=== PATIENT | male | born 1955 | race Caucasian/White ===

== ENCOUNTER → 2023-11-23 06:15 | Day surgery (SDC) | payer OTHER, SELFPAY | LOC: GI 06:15 | PROVIDERS: ATTENDING PHYSICIAN Internal Medicine Gastroenterology | DX: Z12.11 Encounter for screening for malignant neoplasm of colon (principal); K57.30 Diverticulosis of large intestine without perforation or abscess without bleeding; K64.8 Other hemorrhoids | CPT/HCPCS: G0121 ==

== ENCOUNTER → 2024-01-15 06:23 | Day surgery (SDC) | payer OTHER, SELFPAY | LOC: GI 06:23 | PROVIDERS: ATTENDING PHYSICIAN Internal Medicine Gastroenterology | DX: K21.00 Gastro-esophageal reflux disease with esophagitis, without bleeding (principal); K22.2 Esophageal obstruction; K44.9 Diaphragmatic hernia without obstruction or gangrene; R13.10 Dysphagia, unspecified | CPT/HCPCS: 43249 ==

== ENCOUNTER 2024-11-03 06:20 | Day surgery (SDC) | payer OTHER, SELFPAY ==
[2024-11-03] VITALS (8 sets, daily range): BP systolic 125–143; BP diastolic 63–94; BMI 24.6
[2024-11-03] MEDS: NORMOSOL-R/PLASMALYTE-A 1000 IV (08:33)
[2024-11-03] MEDS: TYLENOL 1000 MG PO (08:33)
--- NOTE | 2024-11-03 12:08 | W.IMMPOSTOP ---
Surgical Immed Post Op Note
-
Primary Surgeon: Magda
Assisting: Ruben TUBBS
Pre-op Diagnosis: Bilateral inguinal and incarcerated umbilical hernia
Post-op Diagnosis: Same
Procedure Performed: Robot assisted laparoscopic repair bilateral inguinal and incarcerated umbilical hernias (rTAPP)
Anesthesia Type: GETA + TAP block
Specimen / Cultures: None
Estimated Blood Loss: 5cc
Complications: None immediate
Operative Findings: Bilateral indirect defects, bilateral cord lipomas, fatty cord on the left; D/L XL MID 3D max; 1.5x1cm umbilical defect, 8cm bard round soft mesh preperitoneal
--- NOTE | 2024-11-03 12:10 | OR.RPT ---
Operative Report
Operative Report
Primary Surgeon: Magda
Assisting: Ruben TUBBS
Pre-op Diagnosis: Bilateral inguinal and incarcerated umbilical hernia
Post-op Diagnosis: Same
Procedure Performed: Robot assisted laparoscopic repair bilateral inguinal and incarcerated umbilical hernias (rTAPP)
Anesthesia Type: GETA + TAP block
Specimen / Cultures: None
Estimated Blood Loss: 5cc
Complications: None immediate
Operative Findings: Bilateral indirect defects, bilateral cord lipomas, fatty cord on the left; D/L XL MID 3D max; 1.5x1cm umbilical defect, 8cm bard round soft mesh preperitoneal
Date of Surgery: 11/03/24
Indications: This 68M developed symptomatic right inguinal hernia. Exam revealed an umbilical and left inguinal defect. He asked that we repair all three hernias today. Robot assisted laparoscopic repair was elected
Description of procedure:� The patient was taken to the operating room and positioned into supine position. The patient�s abdomen was prepped and draped in standard sterile fashion. A time-out was completed verifying correct patient, procedure,
site, positioning, and implants and special equipment prior to beginning this procedure. The groin hernias and incarcerated umbilical hernia were manually reduced.
A stab incision was made in the left upper quadrant, a Veress needle was inserted and proper position was confirmed by aspiration and saline drop test. Following this, pneumoperitoneum was created with insufflation of carbon dioxide to 12 mmHg. Then
a 8mm robotic trocar was inserted above and to the left of the umbilicus. A laparoscope was inserted and the area of initial trocar entry and Veress needle placement were both inspected and no injuries were found. Two 8mm trocars were then placed
lateral to the rectus sheath under direct visualization.
Both inguinal regions were inspected and the median umbilical ligament, medial umbilical ligament, and lateral umbilical fold were identified. Attention was turned to the right groin. The peritoneum was incised transversely above the defect and a
flap was developed in the caudad direction. Patrick�s ligament was identified ultimately dissected to its junction with the iliac vein and the space of Retzius was developed bluntly. The dissection was continued inferiorly to the iliopubic tract,
with care taken to avoid injury to the femoral branch of the genitofemoral nerve and the lateral femoral cutaneous nerve. The cord structures were parietalized.
The direct space was inspected and a hernia defect was not identified. The femoral space was inspected and no defect was identified. The indirect space was inspected and a defect was identified and reduced by gentle traction. The canal was
inspected and a large sized cord lipoma was identified and reduced.
Attention was turned to the left groin and the above process was repeated. An indirect hernia was reduced along with a large sized cord lipoma. The cord was fatty on this side.
Extra large left and right MID 3D max mesh was passed through a trocar. The mesh was placed into the preperitoneal space and moved into position to lay flat and completely cover the direct, indirect, and femoral spaces with overlap at the midline.
The mesh was secured into place using 2-0 vicryl suture to Patrick�s ligament medially and laterally. Care was taken to avoid the inferolateral triangles containing the iliac vessels and genital nerves. The peritoneal flap was closed over the mesh
and secured with 2-0 monocryl stratafix suture in similar positions of safety. A flap rent on either side was closed with 2-0 vicryl suture. A 14g angiocath was used to decompress the preperitoneal space revealing good seal and all mesh in good
position without folding or curling.
Attention was turned to the umbilical defect. An incision was made in the peritoneum several cm superior to the defect and a flap was developed in caudad direction. The defect was identified and measured as above. The incarcerated fat was reduced
and the defect was closed with 0 PDS stratafix suture. A 8cm x 8cm bard soft mesh was passed into the abdomen and placed into the preperitoneal space, flush against the abdominal wall and centered on the defect. The mesh was secured in place with
3-0 vicryl suture under the defect and at all four corners. The peritoneal flap was then closed over the mesh and secured to the abdominal wall with 2-0 monocryl suture. A 14g angiocath was used to decompress the preperitoneal space revealing good
seal and all mesh in good position without folding or curling.
After ensuring adequate hemostasis, the trocars were removed and the pneumoperitoneum allowed to escape. The trocar incisions were closed at the skin level using 4-0 monocryl and topical skin adhesive. All counts were correct and the patient
tolerated the procedure well and was taken to the postanesthesia care unit in stable condition.
The assistance of Ruben TUBBS was required due to the complexity of the procedure. During the procedure she assisted with retraction, resection, and closure of the wound.
[2024-11-03] MEDS: DILAUDID 0.5 MG IV (12:48)
== END 2024-11-03 14:08 | disposition home or self-care (01) ==
LOC: SDS 06:20
PROVIDERS: ATTENDING PHYSICIAN Surgery; FAMILY PHYSICIAN Internal Medicine
DX: K40.20 Bilateral inguinal hernia, without obstruction or gangrene, not specified as recurrent (principal); K42.0 Umbilical hernia with obstruction, without gangrene
CPT/HCPCS: 49650; 49592; 93005; C1781

== ENCOUNTER → 2024-12-12 09:58 | Outpatient (REF) | payer OTHER, SELFPAY | LOC: RCS 09:58 | PROVIDERS: ATTENDING PHYSICIAN Internal Medicine; FAMILY PHYSICIAN Internal Medicine | DX: I25.10 Atherosclerotic heart disease of native coronary artery without angina pectoris (principal); I10 Essential (primary) hypertension; I45.10 Unspecified right bundle-branch block; R06.09 Other forms of dyspnea | CPT/HCPCS: 93306 ==

== ENCOUNTER → 2024-12-19 09:57 | Outpatient (REF) | payer OTHER, SELFPAY | LOC: RCS 09:57 | PROVIDERS: ATTENDING PHYSICIAN Internal Medicine; FAMILY PHYSICIAN Internal Medicine | DX: I25.10 Atherosclerotic heart disease of native coronary artery without angina pectoris (principal); I10 Essential (primary) hypertension; I45.10 Unspecified right bundle-branch block; R06.09 Other forms of dyspnea | CPT/HCPCS: 93017; 93350 ==

== ENCOUNTER 2025-03-07 14:16 | Emergency (ER) | payer OTHER, SELFPAY ==
[2025-03-07 14:18] VITALS: BP 154/109
[2025-03-07 14:50] VITALS: BMI 25.1
[2025-03-07] MEDS: ADACEL 0.5 ML IM (14:54)
--- NOTE | 2025-03-07 15:09 | ED.GENMED ---
History of Present Illness
General
Chief Complaint: Fall
Source: patient
Exam Limitations: none
Time Seen by Provider: 03/07/25 14:38
History of Present Illness
History of Present Illness:
69yoM with a history of hypertension and hyperlipidemia presenting for evaluation after a fall about 1 hour ago. Patient was cleaning windows and was standing on a carport when he lost his balance and fell 6 feet to the ground. He sustained
multiple lacerations to his scalp during the incident. He denies any loss of consciousness. Patient was able to get up immediately after the fall. He went to urgent care and was sent to the ED for evaluation. His only current complaint is a
headache. He denies any dizziness, visual changes, vomiting, neck pain, pleuritic pain, abdominal pain, back pain. His only blood thinner is a baby aspirin.
Past History
Past History
ED Past Medical History: Hypercholesterolemia
ED Past Surgical History: Orthopedic (Patient has a history of an elbow reduction, as well as has a left heel subtalar fusion.)
Social History
Tobacco: Non-smoker
Personal:
Living: with family
Employment: Employed
Family History
Family History: Cancer (breast)
Phy Exam
General Physical Exam
General Presentation: well appearing and no apparent distress
General age: appears stated age
General Skin: warm and dry
General Habitus: normal
General Mental: alert
ENT Exam
ENT Exam: normocephalic and other (Two scalp gaping lacerations noted with mild amount of active bleeding. 6cm laceration noted to middle of scalp and 5cm laceration noted to right lateral scalp.)
Additional ENT: No cervical spine tenderness
Eye Exam
Eye Exam: PERRL and conjunctiva normal
Pulmonary Exam
Pulmonary Exam: lungs clear, no respiratory distress, no rales, chest non tender, no crackles and no rhonchi
Gastrointestinal Exam
Gastrointestinal Exam: non tender, soft and non distended
Neurological Exam
Neurological Exam: alert
[place] Coma Scale
Eye Opening: Spontaneous
Verbal Response: Oriented
Motor Response: Obeys Commands
GCS Total Score: 15
Musculoskeletal Exam
Musculoskeletal Exam: other (No C/T/L spine tenderness)
Skin Exam
Skin Exam: normal color and warm/dry
Psychiatric Exam
Psychiatric Exam: normal mood/affect
Course
Orders/Labs/Results
Orders:
Orders
03/07/25 14:51
CT Cervical Spine W/o Iv Contr Urgent
Comment:
Reason For Exam: head injury
CT Head W/o Iv Contrast Urgent
Comment:
Reason For Exam: head injury
Tetanus/Diphth/Acelpertussis [Adacel] 0.5 ml IM .ONCE ONE
Vital Signs
Initial and Last Documented VS:
Initial Vital Signs
Temp Pulse Resp BP Pulse Ox
97.8 F 86 16 154/109 97
03/07/25 14:18 03/07/25 14:18 03/07/25 14:18 03/07/25 14:18 03/07/25 14:18
Last Documented Vital Signs
Temp Pulse Resp BP Pulse Ox
97.8 F 68 16 151/84 97
03/07/25 14:18 03/07/25 17:46 03/07/25 17:46 03/07/25 17:46 03/07/25 17:46
Procedures
Laceration Closure
Medial Scalp:
Status of Wound: clean
Size of Wound in cm: 6
Description of Wound Edges: ragged
Preparation: cleaned with saline
Anesthesia: 1% Lidocaine with epi
Wound exploration: explored to base- no FB
Type of Closure: single layer closure
Skin Closure Material: skin saturnino
Number of sutures: 5
Right Lateral Scalp:
Status of Wound: clean
Size of Wound in cm: 5
Description of Wound Edges: ragged
Preparation: cleaned with saline
Anesthesia: 1% Lidocaine with epi
Wound exploration: explored to base- no FB
Skin Closure Material: skin saturnino
Number of sutures: 6
MDM/Problems Addressed
Differential Diagnosis Includes:
69yoM here after he fell 6 feet off of a carport and struck his head. No LOC. C/o headache. Arrives with 2 scalp lacerations. No other injuries seen on exam. He is awake, alert, with a GCS of 15. Differential diagnosis includes but is not limited
to: Laceration, closed head injury, concussion, intracranial hemorrhage, fracture
Lacerations repaired with saturnino as above. Tdap updated. CT head and cervical spine obtained which are negative for bleeding or fractures. Patient stable for discharge. Home wound care discussed. He was advised to have saturnino removed in 1
week and return to the ER with any signs of infection.
*Pulse Oximetry
SaO2: 97
Oxygen Mode of Delivery: Room air
Patient hypoxic: no
*Critical Care Note
Total Time (30-74mins, 75-104mins- exclusive of procedures): Not Applicable
ED Attending Note
-
Portions of this chart may have been created with voice recognition software.� Occasional wrong word or��sound alike� substitutions may have occurred due to the inherent limitations of voice recognition software.
Discharge Plan
Departure
Patient Disposition: Home (Routine Discharge)
Date of Disposition: 03/07/25
Time of Disposition: 17:44
Patient with high blood pressure during this ER visit?: Yes
Discharge Problem:
Laceration of scalp, Head injury
Instructions: Head Injury in Adults (DC), Laceration Repair With [place] (DC)
Prescriptions:
No Action
amlodipine 5 mg Tablet
5 mg PO HS
aspirin 81 mg Tablet,Delayed Release (Dr/Ec)
81 mg PO HS
losartan-hydrochlorothiazide 100-25 mg Tablet
1 tab PO DAILY
omeprazole 20 mg Capsule,Delayed Release(Dr/Ec)
20 mg PO Q48H
rosuvastatin 10 mg Tablet
10 mg PO HS
saw palmetto 450 mg Capsule
900 mg PO BID
tavaborole 5 % Solution With Applicator
1 applic TOPICAL HS
magnesium glycinate
1 cap PO HS
tramadol 50 mg tablet
50 mg PO Q6H PRN (Reason: Pain) Qty: 40 0RF
Referrals:
Jackie Tinajero MD [Family Provider, Internal Medicine]
Activity Restrictions/Additional Instructions:
Apply ice to affected area. Take Tylenol and Aleve as needed for pain. Keep wound clean and dry.
Saturnino will need to be removed in 1 week. Return to the ER with any worsening symptoms including signs of infection.
Interventions
Interventions:
*Risk Screen - Suicide Last Done: 03/07/25 14:18
*General Assessment Last Done: 03/07/25 14:18
*Neglect/Abuse Screening Last Done: 03/07/25 14:18
*ED- Fall Risk Assessment Last Done: 03/07/25 14:18
*ED COVID-19 Vaccine History Last Done: 03/07/25 14:18
*ED Influenza Vaccine History Last Done: 03/07/25 14:18
*Nursing Disposition Last Done: 03/07/25 17:49
ED-Musculoskeletal Assessment Last Done: 03/07/25 14:50
ED- Neurological Assessment Last Done: 03/07/25 14:50
ED-Skin Assessment Last Done: 03/07/25 14:50
Discharge Date and Time
Discharge Date/Time: 03/07/25 17:50
Print Language: ICELANDIC
[2025-03-07 17:46] VITALS: BP 151/84
== END 2025-03-07 17:50 | disposition home or self-care (01) ==
LOC: EMR 14:16
PROVIDERS: EMERGENCY PHYSICIAN Emergency Medicine; FAMILY PHYSICIAN Internal Medicine
DX: S01.01XA Laceration without foreign body of scalp, initial encounter (principal); S09.90XA Unspecified injury of head, initial encounter; W17.89XA Other fall from one level to another, initial encounter; Y93.H9 Activity, other involving exterior property and land maintenance, building and construction; I10 Essential (primary) hypertension; E78.00 Pure hypercholesterolemia, unspecified; Z23 Encounter for immunization; Z79.82 Long term (current) use of aspirin
CPT/HCPCS: 99284; 12004; 90471; 70450; 72125; 90715